=== PATIENT | female | born 2000 | race Caucasian/White ===

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

== ENCOUNTER 2023-10-04 15:22 | Emergency (ER) | payer SELFPAY ==
[2023-10-04 15:24] VITALS: BP 147/88; PULSE 96; RESP 18; TEMP 36.7; O2SAT 97; BMI 29.1
[2023-10-04 15:50] VITALS: BP 130/87; PULSE 85; RESP 20; TEMP 37.1; O2SAT 99
--- NOTE | 2023-10-04 16:07 | ED_ITS ---
I was consulted by the ANGELITO, and we discussed the complexity of the problems being addressed. I approved the treatment and management plan for this patient's care in the emergency department, thus performing a substantive portion of the medical decision making. Discharge Plan Disposition Patient Disposition: Home, Self-Care Condition: Good Prescriptions Prescriptions: No Action levofloxacin 500 MG tablet 500 mg PO DAILY Qty: 7 0RF Referrals Follow up/Referrals: Madhu Guo MD [Staff Physician] - See instructions Kit Arreguin [Primary Care Provider] - See instructions Activity Restrictions/Add. Instructions Additional Instructions/Restrictions: You have been diagnosed with a pilonidal cyst. Please call and schedule an appointment with our surgeon Dr. Guo as soon as you are able. Clinical Impressions Clinical Impression: Cyst, pilonidal, with abscess Discharge ED Provider: Omar Arreguin General Adult HPI General Chief complaint: Skin/Abscess/Foreign Body Stated complaint: poss infected hair follicle on lower back Time Seen by Provider: 10/04/23 15:30 Mode of Arrival: Ambulatory Source of Information: Patient Limitations: No Limitations Description of Symptoms (Recalled from ER Triage Doc. by RN): Patient reports she noticed a infected hair in her butt crack. Reports mother in law pulled hair out of it and it feels some better but wanted to get it looked at. History of Present Illness HPI narrative: Patient is a 23-year-old female presents with an area of draining in the shayne cleft. This been going on for approximately 2 weeks. They have attempted self therapies at home including utilizing tweezers to pull hairs out of the area. Patient denies saddle anesthesia incontinence paresthesias Related Data Previous Rx's Medication Instructions Recorded levofloxacin 500 mg tablet 500 mg PO DAILY #7 tabs 09/10/20 Allergies Allergy/AdvReac Type Severity Reaction Status Date / Time Penicillins Allergy Mild Verified 07/17/20 11:13 [facility] Disclaimer: The information contained in this section may have been updated after the patient was seen, as this information can be updated by other users. Social History Smoking Status: Never smoker alcohol intake: never current occupational status: other Travel in the last 8 weeks: None ROS Obtained: Yes Systems reviewed as appropriate & no additional complaints except as documented Physical Exam General General appearance: alert Respiratory Respiratory exam: Absent respiratory distress Cardiovascular Cardiovascular exam: Present regular rate Rectal Exam comment: On exam patient has erythema in the cleft without any induration. There is a proximately 2 mm pin size hole in the midline of the cleft that is not currently draining fluid. There is no deep induration and there is no purulence currently. Neurological Exam Neurological exam: Present alert Lymphatic Lymphatic Findings: no adenopathy Medical Decision Making Niraj Inquiry Pt receiving controlled substance: No Vital Signs: 10/04/23 15:24 10/04/23 15:50 Temperature 98.1 F 98.8 F Temperature Source Oral Oral Pulse Rate 85 Pulse Rate [Right] 96 H Respiratory Rate 18 20 Blood Pressure 130/87 Blood Pressure [Right Arm] 147/88 H Blood Pressure Mean [Right Arm] 107 Blood Pressure Source Automatic Cuff Blood Pressure Source [Right Arm] Automatic Cuff Blood Pressure Position Sitting 02 Sat by Pulse Oximetry 97 Oxygen Delivery Method Room Air Room Air Medical Decision Narrative: In summary patient is a 23-year-old female who presents to the emergency department for evaluation of a draining abscess. Patient is hemodynamically stable upon arrival, and afebrile. Physical exam shows erythema in the shayne cleft along with a midline 2 mm defect in the midline of the cleft at the top of the shayne cleft. Differential diagnosis includes pilonidal abscess versus perirectal abscess with epidural extension. Initial workup was considered including hematologic labs and imaging however given that clinically patient has pilonidal abscess with no other concerning findings on exam it was deferred. There is no drainable abscess at bedside, no surrounding significant cellulitis for which antibiotics would need to be prescribed. Given this patient is appropriate for discharge at this time will follow-up with surgery on outpatient basis. Critical Care Critical Care Time Critical Care Time: No
== END 2023-10-04 15:57 | disposition home or self-care (01) ==
LOC: ER 15:56
PROVIDERS: Emergency Provider Student in an Organized Health Care Education/Training Program; PCP Family Medicine
DX: L05.01 Pilonidal cyst with abscess (principal)
CPT/HCPCS: 99282

== ENCOUNTER 2024-08-09 15:18 | Outpatient (CLI) | payer OTHER, SELFPAY ==
--- NOTE | 2024-08-09 15:29 | US_ITS ---
PROCEDURE: US TRANSVAGINAL CLINICAL INDICATION: Dyspareunia,amenorrhea COMPARISON: CT CT ABDOMEN PELVIS W CON from 09/10/2020 FINDINGS: Transvaginal sonographic images of the pelvis were obtained. UTERUS: 7.6cm x 4.4cmx 2.8cm anteverted with a combined endometrial thickness of 4.9mm. LEFT OVARY: 2.8cmx1.5cmx1.8cm with a volume of 4ml. There are multiple small peripheral follicles giving the ovary a polycystic appearance. RIGHT OVARY: 3.1cmx 2.4cmx1.9cm with a volume of 7.4ml. There are multiple small peripheral follicles giving the ovary a polycystic appearance Both ovaries are seen and appear polycystic. Doppler flow to both ovaries are seen. There is no fluid in the cul-de-sac. IMPRESSION: 1. Anteverted uterus normal in shape and size. The endometrium appears normal. 2. Both ovaries are seen and appear polycystic. 3. No fluid in the cul-de-sac. Dictated by: Rip Powers MD 08/10/2024 07:17 Rip Powers MD in [place] 08/10/2024 07:17
== END 2024-08-09 23:59 | disposition home or self-care (01) ==
LOC: RAD 15:18
PROVIDERS: PCP Family Medicine; Visit Provider Obstetrics & Gynecology
DX: N97.9 Female infertility, unspecified (principal); N94.12 Deep dyspareunia; E28.2 Polycystic ovarian syndrome; N94.6 Dysmenorrhea, unspecified
CPT/HCPCS: 76830